=== PATIENT | male | born 1945 | race Caucasian/White ===

== ENCOUNTER 2023-01-09 15:50 | Emergency (ER) | payer BC, MEDICARE, OTHER ==
[~2023-01-09] VITALS: Ht 170.2 cm; Wt 75.0 kg
[2023-01-09 17:03] LABS: ALANINE AMINOTRANSFERASE 48 U/L (12-78); ALBUMIN 4.4 G/DL (3.4-5.0); ALBUMIN/GLOBULIN RATIO 1.3 (1.1-1.5); ALKALINE PHOSPHATASE 111 IU/L (46-116); ANION GAP 13 (8-16); ASPARTATE AMINO TRANSFERASE 25 U/L (10-37); BILIRUBIN,TOTAL 0.5 MG/DL (0.1-1.0); BLOOD UREA NITROGEN 27 MG/DL (7-18); BUN/CREATININE RATIO 18.6 (10.0-20.0); CALCIUM 9.3 MG/DL (8.5-10.1); CHLORIDE 98 MMOL/L (99-107); CREATININE 1.45 MG/DL (0.60-1.10); GLUCOSE 224 MG/DL (70-104); POTASSIUM 3.8 MMOL/L (3.5-5.1); SODIUM 138 MMOL/L (135-145); TOTAL CARBON DIOXIDE 26.6 MMOL/L (24-32); TOTAL PROTEIN 7.9 G/DL (6.4-8.2); eGFR 47 ML/MIN
[2023-01-09] MEDS ORDERED: normal saline 1000ML IV soln IVB ONE (17:05)
[2023-01-09 17:48] LABS: MEAN PLATELET VOLUME 8.3 FL (7.4-10.4)
[2023-01-09 17:50] LABS: BASOPHILS # (AUTO) 0.1 X10'3 (0-0.2); BASOPHILS % (AUTO) 0.5 % (0-1); EOSINOPHILS # (AUTO) 0.2 X10'3 (0-0.9); EOSINOPHILS % (AUTO) 1.5 % (0-6); LYMPHOCYTES # (AUTO) 2.7 X10'3 (1.1-4.8); LYMPHOCYTES % (AUTO) 24.4 % (21-51); MONOCYTES % (AUTO) 9.1 % (2-12); NEUTROPHILS % (AUTO) 64.5 % (42-75); PLATELET COUNT 137 X10'3 (140-440); WHITE BLOOD COUNT 10.9 X10'3 (4.5-11.0)
[2023-01-09 18:04] LABS: MAGNESIUM 1.7 MG/DL (1.5-2.4)
[2023-01-09 19:07] LABS: COLOR,URINE YELLOW (Yellow); GLUCOSE, URINE 100 mg/dl (Neg); KETONES,URINE NEGATIVE (Neg); LEUKOCYTE ESTERASE ,URINE NEGATIVE (Neg); NITRITES, URINE NEGATIVE (Neg); OCCULT BLOOD,URINE SMALL (Neg); PH,URINE 5.5 (4.8-8.0); PROTEIN,URINE 100 mg/dl (Neg); UROBILINOGEN,URINE 0.2 E.U/dL (0.2-1.0)
[2023-01-09 19:16] LABS: HEMATOCRIT 43.3 % (42.0-52.0); HEMOGLOBIN 15.5 g/dl (14.0-17.9); MEAN CORPUSCULAR HEMOGLOBIN 32.5 PG (27.0-31.0); MEAN CORPUSCULAR HGB CONC 35.9 g/dL (33.0-36.5); MEAN CORPUSCULAR VOLUME 90.5 FL (78-98); RED BLOOD COUNT 4.78 X10'6 (4.70-6.10); RED CELL DISTRIBUTION WIDTH 13.4 % (11.5-14.5)
[2023-01-09 19:28] LABS: CLARITY,URINE SLIGHTLY CLOUDY (Clear); UA COLLECTION TYPE CLN CATCH MIDSTREAM
[2023-01-09 19:29] LABS: BACTERIA,URINE FEW /HPF (Neg); MUCUS STRANDS FEW /LPF (Neg); RBC,URINE 0-2 /HPF (0-2); SQUAMOUS EPITHELIAL CELL,UR FEW /LPF (FEW); URIC ACID CRYSTALS FEW /HPF (NEGATIVE); WBC,URINE 0-4 /HPF (0-4)
[2023-01-09 19:36] LABS: PLATELET ESTIMATE DECREASED; TOTAL CELLS COUNTED 100
[2023-01-09 19:39] LABS: ELLIPTOCYTES FEW; SPHEROCYTES FEW
[2023-01-09] MEDS ORDERED: nitroGLYCERIN 0.4mg/hour patch TD ONE (19:55)
[2023-01-09] MEDS ORDERED: HYDROchlorothiazide 25mg tablet PO ONE (19:55)
[2023-01-09] MEDS ORDERED: losartan 50mg tablet PO ONE (20:00)
[2023-01-09 21:42] VITALS: BP 159/89
[2023-01-09] MEDS ORDERED: MECL-226 PO (22:09)
== END 2023-01-09 22:52 | disposition home or self-care (01) ==
LOC: ER 15:51
DX: R42 Dizziness and giddiness (principal); R53.83 Other fatigue; I10 Essential (primary) hypertension; E11.9 Type 2 diabetes mellitus without complications; Z88.1 Allergy status to other antibiotic agents; Z79.899 Other long term (current) drug therapy
CPT/HCPCS: 36415; 70450; 71045; 80053; 81001; 82948; 83605; 83690; 83735; 83880; 84484; 85007; 85025; 87040; 93005; 99285; J7030

== ENCOUNTER 2024-04-14 08:16 | Inpatient (IN) | payer BC ==
[~2024-04-14] VITALS: Ht 170.2 cm; Wt 75.0 kg
[~2024-04-14 08:16] MED LIST: MECL-226 PO
[2024-04-14] MEDS ORDERED: AMLO2.5T5 PO (08:31)
[2024-04-14] MEDS ORDERED: SIMV-45 PO (08:31)
[2024-04-14] MEDS ORDERED: METO25TA6 PO (08:31)
[2024-04-14] MEDS ORDERED: LEVO112T5 PO (08:31)
[2024-04-14] MEDS ORDERED: HYDR25TA90 (08:31)
[2024-04-14] MEDS: morphine 4 MG/ML inj SYRINge IV ONE ×2 (08:58→12:58)
[2024-04-14 10:57] LABS: ALANINE AMINOTRANSFERASE 26 U/L (12-78); ALBUMIN 3.7 G/DL (3.4-5.0); ALBUMIN/GLOBULIN RATIO 1.1 (1.1-1.5); ALKALINE PHOSPHATASE 109 IU/L (46-116); ANION GAP 10 (8-16); ASPARTATE AMINO TRANSFERASE 23 U/L (10-37); BILIRUBIN,TOTAL 1.1 MG/DL (0.1-1.0); BLOOD UREA NITROGEN 20 MG/DL (7-18); BUN/CREATININE RATIO 21.5 (10.0-20.0); CALCIUM 8.7 MG/DL (8.5-10.1); CHLORIDE 99 MMOL/L (99-107); CREATININE 0.93 MG/DL (0.60-1.10); GLUCOSE 148 MG/DL (70-104); SODIUM 137 MMOL/L (135-145); TOTAL CARBON DIOXIDE 28.2 MMOL/L (24-32); TOTAL PROTEIN 7.1 G/DL (6.4-8.2); eCRCL 60 ML/MIN; eGFR 78 ML/MIN
[2024-04-14 11:28] LABS: BASOPHILS # (AUTO) 0.1 X10'3 (0-0.2); BASOPHILS % (AUTO) 0.8 % (0-1); EOSINOPHILS % (AUTO) 0.2 % (0-6); HEMATOCRIT 38.7 % (42.0-52.0); LYMPHOCYTES # (AUTO) 0.9 X10'3 (1.1-4.8); LYMPHOCYTES % (AUTO) 9.1 % (21-51); MEAN CORPUSCULAR HEMOGLOBIN 33.7 PG (27.0-31.0); MEAN CORPUSCULAR VOLUME 93.4 FL (78-98); MEAN PLATELET VOLUME 7.9 FL (7.4-10.4); MONOCYTES # (AUTO) 0.7 X10'3 (0-0.9); MONOCYTES % (AUTO) 7.7 % (2-12); NEUTROPHILS # (AUTO) 7.9 X10'3 (1.8-7.7); NEUTROPHILS % (AUTO) 82.2 % (42-75); PLATELET COUNT 134 X10'3 (140-440); RED BLOOD COUNT 4.15 X10'6 (4.70-6.10); RED CELL DISTRIBUTION WIDTH 13.5 % (11.5-14.5); WHITE BLOOD COUNT 9.6 X10'3 (4.5-11.0)
[2024-04-14 11:30] LABS: MEAN CORPUSCULAR HGB CONC 36.1 g/dL (33.0-36.5)
[2024-04-14] MEDS: dexamethasone sod phosphate 10mg/ml inj IV STA (12:40)
[2024-04-14] MEDS: amLODIPine 2.5mg tablet PO ONE (12:46)
[2024-04-14] MEDS: hyDRALAzine 10mg tablet PO STA (12:46)
[2024-04-14] MEDS ORDERED: potassium Cl 40MEQ/1/2NS 520ml 520 ML IV PRN (13:20)
[2024-04-14] MEDS ORDERED: potassium Cl 20 mEq SR tablet PO PRN ×2 (13:20)
[2024-04-14] MEDS ORDERED: acetaminophen 325mg tablet PO PRN (13:20)
[2024-04-14] MEDS ORDERED: magnesium sulf-water 2g/50mL 50 ML IV PRN (13:20)
[2024-04-14] MEDS ORDERED: magnesium Cl slow-release 64mg tablet PO PRN (13:20)
[2024-04-14] MEDS ORDERED: morphine 2 MG/ML inj. syringe IV PRN (13:20)
[2024-04-14] MEDS ORDERED: magnesium sulf-water 4G/100mL 100 ML IV PRN (13:20)
[2024-04-14] MEDS: normal saline 1000ml 1,000 ML IV SCH (13:38)
[2024-04-14] MEDS ORDERED: SERT-432 PO (13:44)
[2024-04-14] MEDS ORDERED: LOSA100T58 PO (13:44)
[2024-04-14] MEDS ORDERED: FLO0.4C PO (13:44)
[2024-04-14] MEDS ORDERED: HYDR25TA90 PO (13:49)
[2024-04-14] MEDS ORDERED: INSU100V9 SQ (13:50)
[2024-04-14 15:08] LABS: HEMOGLOBIN A1C 5.7 % (4.5-6.2)
[2024-04-14 15:15] LABS: CHOL/HDL RATIO 4.5 (0.00-4.99); CHOLESTEROL 139 MG/DL (0-200); HDL CHOLESTEROL 31 MG/DL (35-60); LDL CHOLESTEROL 86 MG/DL (50-100); THYROID STIMULATING HORMONE 1.54 ulU/ml (0.34-4.50); TRIGLYCERIDES 176 MG/DL (20-135)
[2024-04-14] MEDS ORDERED: glucagon, human recombinant 1mg kit SUBCUT PRN (16:35)
[2024-04-14] MEDS ORDERED: DEXTROSE 15 GM of carb/4 tabs (each vial/BOTTLE has 4 tablets) PO PRN ×2 (16:35)
[2024-04-14] MEDS ORDERED: dextrose 50%-water 50ml dispensing syringe IV PRN ×2 (16:35)
[2024-04-14] MEDS: INSULIN LISPRO 100 UNIT/ML INSULN.PEN MULTI-DOSE SQ SCH (17:00)
[2024-04-14] MEDS: sertraline 25mg tablet PO SCH (17:45)
[2024-04-14] MEDS: tamsulosin 0.4mg capsule PO SCH (17:46)
[2024-04-14] MEDS: ondansetron/PF 4mg/2ml inj IV PRN (18:46)
[2024-04-14] MEDS: morphine 2 MG/ML inj. syringe IV PRN (18:50)
[2024-04-14 18:55] VITALS: BP 179/82; PULSE 89; TEMP 97.4; O2SAT 97
[2024-04-14 19:00] VITALS: RESP 18; O2SAT 96
[2024-04-14 19:20] VITALS: RESP 18; O2SAT 96
[2024-04-14] MEDS: K and/or MAG REPLACEMENT MC SCH (19:20)
[2024-04-14] MEDS: docusate sod 100mg capsule PO SCH (19:24)
[2024-04-14] MEDS: HYDROcodone/acetaminophen 5mg/325mg tablet PO PRN (19:25)
[2024-04-14] MEDS: metoprolol tartrate 25mg tablet PO SCH (19:27)
[2024-04-14] MEDS: enoxaparin 40mg/0.4ml syringe SQ SCH (19:28)
[2024-04-14] MEDS: simvastatin 20mg tablet PO SCH (21:25)
[2024-04-14] MEDS: insulin glargine (Lantus) pen - multi-dose SQ SCH (21:50)
[2024-04-14 22:00] VITALS: BP 131/78; PULSE 79; RESP 16; TEMP 97.4; O2SAT 98
[2024-04-14] MEDS: temazepam 15mg capsule PO ONE (23:20)
[2024-04-15] MEDS ORDERED: OMEP40CA21 PO (01:53)
[2024-04-15 06:00] VITALS: BP 143/90; PULSE 68; RESP 16; TEMP 97.5; O2SAT 99
[2024-04-15 06:04] LABS: ALANINE AMINOTRANSFERASE 30 U/L (12-78); ALBUMIN 3.5 G/DL (3.4-5.0); ALKALINE PHOSPHATASE 102 IU/L (46-116); ANION GAP 7 (8-16); ASPARTATE AMINO TRANSFERASE 23 U/L (10-37); BILIRUBIN,TOTAL 0.8 MG/DL (0.1-1.0); BLOOD UREA NITROGEN 27 MG/DL (7-18); BUN/CREATININE RATIO 25.5 (10.0-20.0); CALCIUM 8.6 MG/DL (8.5-10.1); CHLORIDE 99 MMOL/L (99-107); CREATININE 1.06 MG/DL (0.60-1.10); GLUCOSE 123 MG/DL (70-104); MAGNESIUM 2.1 MG/DL (1.5-2.4); SODIUM 134 MMOL/L (135-145); TOTAL CARBON DIOXIDE 27.9 MMOL/L (24-32); eCRCL 53 ML/MIN; eGFR 67 ML/MIN
[2024-04-15 06:20] LABS: BASOPHILS % (AUTO) 0.2 % (0-1); EOSINOPHILS % (AUTO) 0.1 % (0-6); HEMATOCRIT 39.1 % (42.0-52.0); HEMOGLOBIN 13.9 g/dl (14.0-17.9); LYMPHOCYTES # (AUTO) 1.5 X10'3 (1.1-4.8); LYMPHOCYTES % (AUTO) 10.2 % (21-51); MEAN CORPUSCULAR HEMOGLOBIN 33.8 PG (27.0-31.0); MEAN CORPUSCULAR HGB CONC 35.6 g/dL (33.0-36.5); MEAN CORPUSCULAR VOLUME 94.7 FL (78-98); MONOCYTES # (AUTO) 1.2 X10'3 (0-0.9); MONOCYTES % (AUTO) 8.5 % (2-12); NEUTROPHILS # (AUTO) 11.6 X10'3 (1.8-7.7); PLATELET COUNT 154 X10'3 (140-440); RED BLOOD COUNT 4.12 X10'6 (4.70-6.10); RED CELL DISTRIBUTION WIDTH 13.4 % (11.5-14.5); WHITE BLOOD COUNT 14.2 X10'3 (4.5-11.0)
[2024-04-15 10:00] VITALS: BP 109/63; PULSE 71; RESP 20; TEMP 97.1; O2SAT 98
[2024-04-15] MEDS: levoTHYROXINE 112mcg tablet PO SCH (11:13)
[2024-04-15] MEDS: losartan 50mg tablet PO SCH (11:13)
[2024-04-15] MEDS: metoprolol succinate 25mg (24-HOUR) SR. Tablet PO SCH (11:38)
[2024-04-15] MEDS ORDERED: GADOTERATE MEGLUMINE 7.5 MMOL/15 ML VIAL IV ONE (13:19)
[2024-04-15 18:00] VITALS: BP 164/92; PULSE 65; RESP 20; TEMP 97; O2SAT 99
[2024-04-15 20:00] VITALS: RESP 18; O2SAT 99
[2024-04-15] MEDS: magnesium hydroxide 30ml (MOM) UD suspension PO PRN (21:30)
[2024-04-15] MEDS: insulin glargine (Lantus) pen - multi-dose SQ SCH (21:41)
[2024-04-15 22:00] VITALS: BP 116/67; PULSE 66; RESP 14; TEMP 99.2; O2SAT 98
[2024-04-15] MEDS: pneumococcal 23-VAL P-sac vacc 25 mcg/0.5ml vial IMVAC ONE (23:22)
[2024-04-16 05:51] LABS: BASOPHILS # (AUTO) 0.1 X10'3 (0-0.2); BASOPHILS % (AUTO) 0.8 % (0-1); EOSINOPHILS # (AUTO) 0.1 X10'3 (0-0.9); EOSINOPHILS % (AUTO) 0.7 % (0-6); HEMATOCRIT 35.1 % (42.0-52.0); HEMOGLOBIN 12.7 g/dl (14.0-17.9); LYMPHOCYTES # (AUTO) 1.7 X10'3 (1.1-4.8); LYMPHOCYTES % (AUTO) 17.4 % (21-51); MEAN CORPUSCULAR HGB CONC 36.1 g/dL (33.0-36.5); MEAN CORPUSCULAR VOLUME 94.2 FL (78-98); MONOCYTES # (AUTO) 0.9 X10'3 (0-0.9); NEUTROPHILS # (AUTO) 7.2 X10'3 (1.8-7.7); NEUTROPHILS % (AUTO) 72.1 % (42-75); PLATELET COUNT 129 X10'3 (140-440); RED BLOOD COUNT 3.72 X10'6 (4.70-6.10); RED CELL DISTRIBUTION WIDTH 13.7 % (11.5-14.5)
[2024-04-16 06:00] VITALS: BP 139/81; PULSE 66; RESP 16; TEMP 97.5; O2SAT 98
[2024-04-16 06:01] LABS: ALANINE AMINOTRANSFERASE 27 U/L (12-78); ALBUMIN 3.1 G/DL (3.4-5.0); ALBUMIN/GLOBULIN RATIO 1.1 (1.1-1.5); ALKALINE PHOSPHATASE 85 IU/L (46-116); ANION GAP 6 (8-16); ASPARTATE AMINO TRANSFERASE 26 U/L (10-37); BILIRUBIN,TOTAL 0.8 MG/DL (0.1-1.0); BLOOD UREA NITROGEN 28 MG/DL (7-18); BUN/CREATININE RATIO 29.2 (10.0-20.0); CALCIUM 8.3 MG/DL (8.5-10.1); CHLORIDE 103 MMOL/L (99-107); CREATININE 0.96 MG/DL (0.60-1.10); GLUCOSE 97 MG/DL (70-104); MAGNESIUM 2.2 MG/DL (1.5-2.4); SODIUM 137 MMOL/L (135-145); TOTAL CARBON DIOXIDE 28.4 MMOL/L (24-32); eCRCL 58 ML/MIN; eGFR 76 ML/MIN
[2024-04-16] MEDS: metFORMIN 500mg tablet PO SCH (07:46)
[2024-04-16] MEDS: metoprolol succinate 25mg (24-HOUR) SR. Tablet PO SCH (07:46)
[2024-04-16 08:00] VITALS: RESP 16; O2SAT 98
[2024-04-16 10:00] VITALS: BP 126/67; PULSE 61; RESP 18; TEMP 97.4; O2SAT 99
[2024-04-16 16:28] LABS: OCCULT BLOOD STOOL NEGATIVE (Neg)
[2024-04-16 18:00] VITALS: BP 157/85; PULSE 77; RESP 18; TEMP 97.7; O2SAT 95
[2024-04-16 20:00] VITALS: RESP 18; O2SAT 95
[2024-04-16 22:00] VITALS: BP 154/73; PULSE 67; RESP 18; TEMP 97.7; O2SAT 97
[2024-04-17 05:03] LABS: BASOPHILS % (AUTO) 0.5 % (0-1); EOSINOPHILS # (AUTO) 0.1 X10'3 (0-0.9); EOSINOPHILS % (AUTO) 1.3 % (0-6); HEMATOCRIT 34.9 % (42.0-52.0); HEMOGLOBIN 12.4 g/dl (14.0-17.9); LYMPHOCYTES # (AUTO) 1.4 X10'3 (1.1-4.8); LYMPHOCYTES % (AUTO) 15.2 % (21-51); MEAN CORPUSCULAR HEMOGLOBIN 33.9 PG (27.0-31.0); MEAN CORPUSCULAR HGB CONC 35.6 g/dL (33.0-36.5); MEAN PLATELET VOLUME 7.6 FL (7.4-10.4); MONOCYTES # (AUTO) 0.9 X10'3 (0-0.9); MONOCYTES % (AUTO) 9.2 % (2-12); NEUTROPHILS # (AUTO) 6.9 X10'3 (1.8-7.7); NEUTROPHILS % (AUTO) 73.8 % (42-75); PLATELET COUNT 123 X10'3 (140-440); RED BLOOD COUNT 3.67 X10'6 (4.70-6.10); WHITE BLOOD COUNT 9.4 X10'3 (4.5-11.0)
[2024-04-17 05:25] LABS: ALANINE AMINOTRANSFERASE 28 U/L (12-78); ALBUMIN 3.1 G/DL (3.4-5.0); ALBUMIN/GLOBULIN RATIO 1.1 (1.1-1.5); ALKALINE PHOSPHATASE 90 IU/L (46-116); ANION GAP 7 (8-16); ASPARTATE AMINO TRANSFERASE 27 U/L (10-37); BILIRUBIN,TOTAL 0.6 MG/DL (0.1-1.0); BLOOD UREA NITROGEN 22 MG/DL (7-18); BUN/CREATININE RATIO 27.5 (10.0-20.0); CALCIUM 8.2 MG/DL (8.5-10.1); CHLORIDE 105 MMOL/L (99-107); GLUCOSE 108 MG/DL (70-104); MAGNESIUM 2.1 MG/DL (1.5-2.4); POTASSIUM 3.9 MMOL/L (3.5-5.1); SODIUM 137 MMOL/L (135-145); TOTAL CARBON DIOXIDE 25.5 MMOL/L (24-32); eCRCL 70 ML/MIN; eGFR > 90 ML/MIN
[2024-04-17 05:27] LABS: % IRON SATURATION 43 % (11-46); IRON 87 UG/DL (53-167); TOTAL IRON BINDING CAPACITY 203 UG/DL (259-388)
[2024-04-17 06:00] VITALS: BP 163/89; PULSE 61; RESP 18; TEMP 97.7; O2SAT 97
[2024-04-17 08:00] VITALS: RESP 16; O2SAT 97
[2024-04-17 10:00] VITALS: BP 175/83; PULSE 78; RESP 19; TEMP 97.7; O2SAT 98
[2024-04-17] MEDS: hydrALAZINE 20mg/ml inj. IV PRN (11:36)
[2024-04-17 18:00] VITALS: BP 198/102; PULSE 86; RESP 20; TEMP 97.9; O2SAT 98
[2024-04-17 20:00] VITALS: BP 159/86; RESP 20; O2SAT 99
[2024-04-17 22:00] VITALS: BP 95/45; PULSE 80; RESP 20; TEMP 97.8; O2SAT 98
[2024-04-17] MEDS: acetaminophen 325mg tablet PO PRN (22:48)
[2024-04-18 05:12] LABS: BASOPHILS % (AUTO) 0.4 % (0-1); EOSINOPHILS % (AUTO) 0.3 % (0-6); HEMATOCRIT 35.5 % (42.0-52.0); HEMOGLOBIN 12.7 g/dl (14.0-17.9); LYMPHOCYTES # (AUTO) 1.2 X10'3 (1.1-4.8); LYMPHOCYTES % (AUTO) 10.7 % (21-51); MEAN CORPUSCULAR HGB CONC 35.9 g/dL (33.0-36.5); MEAN CORPUSCULAR VOLUME 94.8 FL (78-98); MONOCYTES # (AUTO) 0.6 X10'3 (0-0.9); MONOCYTES % (AUTO) 5.5 % (2-12); NEUTROPHILS # (AUTO) 9.2 X10'3 (1.8-7.7); NEUTROPHILS % (AUTO) 83.1 % (42-75); PLATELET COUNT 142 X10'3 (140-440); RED BLOOD COUNT 3.74 X10'6 (4.70-6.10); RED CELL DISTRIBUTION WIDTH 13.6 % (11.5-14.5); WHITE BLOOD COUNT 11.1 X10'3 (4.5-11.0)
[2024-04-18 05:20] LABS: ALANINE AMINOTRANSFERASE 28 U/L (12-78); ALBUMIN 3.2 G/DL (3.4-5.0); ALKALINE PHOSPHATASE 95 IU/L (46-116); ANION GAP 6 (8-16); ASPARTATE AMINO TRANSFERASE 24 U/L (10-37); BILIRUBIN,TOTAL 0.9 MG/DL (0.1-1.0); BLOOD UREA NITROGEN 19 MG/DL (7-18); BUN/CREATININE RATIO 22.4 (10.0-20.0); CALCIUM 8.2 MG/DL (8.5-10.1); CHLORIDE 101 MMOL/L (99-107); CREATININE 0.85 MG/DL (0.60-1.10); GLUCOSE 119 MG/DL (70-104); MAGNESIUM 2.1 MG/DL (1.5-2.4); POTASSIUM 3.9 MMOL/L (3.5-5.1); SODIUM 133 MMOL/L (135-145); TOTAL CARBON DIOXIDE 25.8 MMOL/L (24-32); TOTAL PROTEIN 6.3 G/DL (6.4-8.2); eCRCL 66 ML/MIN; eGFR 87 ML/MIN
[2024-04-18 06:00] VITALS: BP 152/86; PULSE 80; RESP 14; TEMP 98.3; O2SAT 98
[2024-04-18 08:30] VITALS: RESP 18; O2SAT 97
[2024-04-18 11:50] VITALS: BP 137/73; PULSE 76; RESP 17; TEMP 97; O2SAT 100
[2024-04-18 18:00] VITALS: BP 124/63; PULSE 77; RESP 16; TEMP 97.7; O2SAT 98
[2024-04-18 20:00] VITALS: RESP 16; O2SAT 98
[2024-04-18 22:00] VITALS: BP 127/67; PULSE 77; RESP 18; TEMP 97.5; O2SAT 99
[2024-04-19] VITALS (7 sets, daily range): BP systolic 128–179; BP diastolic 74–96; PULSE 62–82; RESP 12–16; TEMP 97.2–98.5; O2SAT 98–99
[2024-04-19 04:50] LABS: BASOPHILS % (AUTO) 0.6 % (0-1); EOSINOPHILS # (AUTO) 0.2 X10'3 (0-0.9); EOSINOPHILS % (AUTO) 2.1 % (0-6); HEMATOCRIT 34.7 % (42.0-52.0); HEMOGLOBIN 12.4 g/dl (14.0-17.9); LYMPHOCYTES # (AUTO) 1.4 X10'3 (1.1-4.8); MEAN CORPUSCULAR HEMOGLOBIN 34.4 PG (27.0-31.0); MEAN CORPUSCULAR HGB CONC 35.8 g/dL (33.0-36.5); MEAN PLATELET VOLUME 7.9 FL (7.4-10.4); MONOCYTES # (AUTO) 0.7 X10'3 (0-0.9); MONOCYTES % (AUTO) 8.3 % (2-12); NEUTROPHILS # (AUTO) 5.6 X10'3 (1.8-7.7); PLATELET COUNT 134 X10'3 (140-440); RED BLOOD COUNT 3.61 X10'6 (4.70-6.10); RED CELL DISTRIBUTION WIDTH 13.8 % (11.5-14.5); WHITE BLOOD COUNT 7.8 X10'3 (4.5-11.0)
[2024-04-19 05:06] LABS: ALANINE AMINOTRANSFERASE 31 U/L (12-78); ALKALINE PHOSPHATASE 85 IU/L (46-116); ANION GAP 7 (8-16); ASPARTATE AMINO TRANSFERASE 28 U/L (10-37); BILIRUBIN,TOTAL 0.9 MG/DL (0.1-1.0); BLOOD UREA NITROGEN 19 MG/DL (7-18); BUN/CREATININE RATIO 22.1 (10.0-20.0); CALCIUM 8.1 MG/DL (8.5-10.1); CHLORIDE 103 MMOL/L (99-107); CREATININE 0.86 MG/DL (0.60-1.10); GLUCOSE 115 MG/DL (70-104); POTASSIUM 3.8 MMOL/L (3.5-5.1); SODIUM 135 MMOL/L (135-145); TOTAL CARBON DIOXIDE 25.1 MMOL/L (24-32); TOTAL PROTEIN 5.9 G/DL (6.4-8.2); eCRCL 65 ML/MIN; eGFR 86 ML/MIN
[2024-04-19] MEDS: metoprolol succinate 25mg (24-HOUR) SR. Tablet PO SCH (07:59)
[2024-04-19] MEDS: lactose-reduced food (Ensure Enlive) - 237ml bottle PO SCH (18:00)
[2024-04-20] VITALS (7 sets, daily range): BP systolic 102–142; BP diastolic 65–81; PULSE 67–82; RESP 16–18; TEMP 97.3–98.9; O2SAT 95–99
[2024-04-20] MEDS: OMEGA-3/DHA/EPA/FISH OIL 1 EACH CAPSULE.DR PO SCH (09:05)
[2024-04-20] MEDS: amLODIPine 2.5mg tablet PO SCH (19:26)
[2024-04-21] VITALS (10 sets, daily range): BP systolic 64–156; BP diastolic 41–89; PULSE 65–77; RESP 14–22; TEMP 97.6–98.1; O2SAT 98–99
[2024-04-21] MEDS: losartan 50mg tablet PO SCH (08:00)
[2024-04-21] MEDS ORDERED: metoprolol succinate 25mg (24-HOUR) SR. Tablet PO SCH (08:18)
[2024-04-21] MEDS ORDERED: normal saline 500ml IV soln 500 ML IV ONE (10:00)
[2024-04-21] MEDS: normal saline 1000ml 1,000 ML IV ONE (10:40)
[2024-04-21 13:26] LABS: BASOPHILS % (AUTO) 0.6 % (0-1); EOSINOPHILS # (AUTO) 0.1 X10'3 (0-0.9); HEMATOCRIT 34.4 % (42.0-52.0); HEMOGLOBIN 12.2 g/dl (14.0-17.9); LYMPHOCYTES # (AUTO) 0.9 X10'3 (1.1-4.8); LYMPHOCYTES % (AUTO) 11.7 % (21-51); MEAN CORPUSCULAR HEMOGLOBIN 33.9 PG (27.0-31.0); MEAN CORPUSCULAR HGB CONC 35.5 g/dL (33.0-36.5); MEAN CORPUSCULAR VOLUME 95.4 FL (78-98); MEAN PLATELET VOLUME 7.7 FL (7.4-10.4); MONOCYTES # (AUTO) 0.7 X10'3 (0-0.9); NEUTROPHILS # (AUTO) 5.7 X10'3 (1.8-7.7); NEUTROPHILS % (AUTO) 77.7 % (42-75); PLATELET COUNT 126 X10'3 (140-440); RED CELL DISTRIBUTION WIDTH 13.9 % (11.5-14.5); WHITE BLOOD COUNT 7.3 X10'3 (4.5-11.0)
[2024-04-21 13:38] LABS: ALANINE AMINOTRANSFERASE 52 U/L (12-78); ALBUMIN 3.1 G/DL (3.4-5.0); ALKALINE PHOSPHATASE 81 IU/L (46-116); ANION GAP 6 (8-16); ASPARTATE AMINO TRANSFERASE 32 U/L (10-37); BILIRUBIN,TOTAL 0.6 MG/DL (0.1-1.0); BLOOD UREA NITROGEN 24 MG/DL (7-18); BUN/CREATININE RATIO 23.1 (10.0-20.0); CALCIUM 8.1 MG/DL (8.5-10.1); CHLORIDE 101 MMOL/L (99-107); CREATININE 1.04 MG/DL (0.60-1.10); GLUCOSE 189 MG/DL (70-104); POTASSIUM 4.2 MMOL/L (3.5-5.1); SODIUM 134 MMOL/L (135-145); TOTAL CARBON DIOXIDE 27.4 MMOL/L (24-32); TOTAL PROTEIN 6.2 G/DL (6.4-8.2); eCRCL 54 ML/MIN; eGFR 69 ML/MIN
[2024-04-21] MEDS: mag hydrox/Alum hydrox/simeth 30ml oral suspension PO PRN (22:35)
[2024-04-22 06:11] LABS: BASOPHILS % (AUTO) 0.4 % (0-1); EOSINOPHILS # (AUTO) 0.2 X10'3 (0-0.9); EOSINOPHILS % (AUTO) 1.6 % (0-6); HEMOGLOBIN 12.1 g/dl (14.0-17.9); LYMPHOCYTES # (AUTO) 1.8 X10'3 (1.1-4.8); LYMPHOCYTES % (AUTO) 16.3 % (21-51); MEAN CORPUSCULAR HEMOGLOBIN 33.9 PG (27.0-31.0); MEAN CORPUSCULAR HGB CONC 35.5 g/dL (33.0-36.5); MEAN CORPUSCULAR VOLUME 95.6 FL (78-98); MONOCYTES # (AUTO) 1.2 X10'3 (0-0.9); MONOCYTES % (AUTO) 10.6 % (2-12); NEUTROPHILS # (AUTO) 7.8 X10'3 (1.8-7.7); NEUTROPHILS % (AUTO) 71.1 % (42-75); PLATELET COUNT 127 X10'3 (140-440); RED BLOOD COUNT 3.56 X10'6 (4.70-6.10); RED CELL DISTRIBUTION WIDTH 13.8 % (11.5-14.5); WHITE BLOOD COUNT 10.9 X10'3 (4.5-11.0)
[2024-04-22 06:38] LABS: ALANINE AMINOTRANSFERASE 49 U/L (12-78); ALBUMIN 3.1 G/DL (3.4-5.0); ALKALINE PHOSPHATASE 83 IU/L (46-116); ANION GAP 6 (8-16); ASPARTATE AMINO TRANSFERASE 25 U/L (10-37); BILIRUBIN,TOTAL 0.5 MG/DL (0.1-1.0); BLOOD UREA NITROGEN 28 MG/DL (7-18); BUN/CREATININE RATIO 29.8 (10.0-20.0); CALCIUM 8.4 MG/DL (8.5-10.1); CHLORIDE 101 MMOL/L (99-107); CREATININE 0.94 MG/DL (0.60-1.10); GLUCOSE 122 MG/DL (70-104); POTASSIUM 4.2 MMOL/L (3.5-5.1); SODIUM 133 MMOL/L (135-145); TOTAL CARBON DIOXIDE 25.6 MMOL/L (24-32); TOTAL PROTEIN 6.2 G/DL (6.4-8.2); eCRCL 60 ML/MIN; eGFR 77 ML/MIN
[2024-04-22 08:00] VITALS: RESP 16; O2SAT 97
[2024-04-22] MEDS: metoprolol succinate 25mg (24-HOUR) SR. Tablet PO SCH (08:03)
[2024-04-22] MEDS: losartan 50mg tablet PO SCH (08:03)
[2024-04-22 09:00] VITALS: BP 111/70; PULSE 74
[2024-04-22 10:00] VITALS: BP 111/70; PULSE 77; RESP 17; TEMP 97.9; O2SAT 98
[2024-04-22] MEDS: fludrocortisone acetate 0.1mg tablet PO SCH (16:26)
[2024-04-22] MEDS: meclizine 12.5mg tablet PO SCH (16:26)
[2024-04-22 18:00] VITALS: BP 141/79; PULSE 86; RESP 20; TEMP 98.6; O2SAT 98
[2024-04-22 20:00] VITALS: RESP 14; O2SAT 97
[2024-04-22 22:00] VITALS: BP 141/77; PULSE 82; RESP 14; TEMP 97.7; O2SAT 97
[2024-04-23] VITALS (7 sets, daily range): BP systolic 80–158; BP diastolic 40–85; PULSE 72–93; RESP 13–17; TEMP 96.7–98.5; O2SAT 97–99
[2024-04-23 09:59] LABS: BASOPHILS # (AUTO) 0.1 X10'3 (0-0.2); BASOPHILS % (AUTO) 0.8 % (0-1); EOSINOPHILS # (AUTO) 0.2 X10'3 (0-0.9); HEMATOCRIT 36.5 % (42.0-52.0); HEMOGLOBIN 12.7 g/dl (14.0-17.9); LYMPHOCYTES # (AUTO) 1.6 X10'3 (1.1-4.8); LYMPHOCYTES % (AUTO) 17.8 % (21-51); MEAN CORPUSCULAR HEMOGLOBIN 33.5 PG (27.0-31.0); MEAN CORPUSCULAR HGB CONC 34.9 g/dL (33.0-36.5); MEAN CORPUSCULAR VOLUME 96.2 FL (78-98); MEAN PLATELET VOLUME 7.9 FL (7.4-10.4); MONOCYTES # (AUTO) 0.8 X10'3 (0-0.9); MONOCYTES % (AUTO) 8.6 % (2-12); NEUTROPHILS # (AUTO) 6.5 X10'3 (1.8-7.7); NEUTROPHILS % (AUTO) 70.8 % (42-75); PLATELET COUNT 142 X10'3 (140-440); RED CELL DISTRIBUTION WIDTH 13.8 % (11.5-14.5); WHITE BLOOD COUNT 9.1 X10'3 (4.5-11.0)
[2024-04-23 10:11] LABS: ALANINE AMINOTRANSFERASE 56 U/L (12-78); ALBUMIN 3.4 G/DL (3.4-5.0); ALBUMIN/GLOBULIN RATIO 1.1 (1.1-1.5); ALKALINE PHOSPHATASE 90 IU/L (46-116); ANION GAP 8 (8-16); ASPARTATE AMINO TRANSFERASE 29 U/L (10-37); BILIRUBIN,TOTAL 0.8 MG/DL (0.1-1.0); BLOOD UREA NITROGEN 29 MG/DL (7-18); CALCIUM 8.8 MG/DL (8.5-10.1); CHLORIDE 98 MMOL/L (99-107); CREATININE 1.21 MG/DL (0.60-1.10); GLUCOSE 215 MG/DL (70-104); POTASSIUM 3.8 MMOL/L (3.5-5.1); SODIUM 134 MMOL/L (135-145); TOTAL CARBON DIOXIDE 27.9 MMOL/L (24-32); TOTAL PROTEIN 6.6 G/DL (6.4-8.2); eCRCL 46 ML/MIN; eGFR 58 ML/MIN
[2024-04-23] MEDS ORDERED: FLUD0.1T PO (12:38)
[2024-04-23] MEDS ORDERED: METO-395 PO (12:38)
[2024-04-23] MEDS ORDERED: MECL-231 PO (12:39)
[2024-04-24 06:00] VITALS: BP 109/67; PULSE 80; RESP 13; TEMP 97.1; O2SAT 100
[2024-04-24 08:00] VITALS: RESP 13; O2SAT 100
[2024-04-24] MEDS ORDERED: metoprolol succinate 25mg (24-HOUR) SR. Tablet PO SCH (08:00)
[2024-04-24] MEDS: midodrine tablet 2.5 MG TABLET PO SCH (09:03)
[2024-04-24] MEDS: fludrocortisone acetate 0.1mg tablet PO SCH (09:07)
[2024-04-24 10:00] VITALS: BP 92/54; PULSE 79; RESP 16; TEMP 97.1; O2SAT 96
[2024-04-24 10:29] LABS: ALANINE AMINOTRANSFERASE 55 U/L (12-78); ALBUMIN 3.5 G/DL (3.4-5.0); ALBUMIN/GLOBULIN RATIO 1.1 (1.1-1.5); ALKALINE PHOSPHATASE 94 IU/L (46-116); ANION GAP 8 (8-16); ASPARTATE AMINO TRANSFERASE 24 U/L (10-37); BILIRUBIN,TOTAL 0.9 MG/DL (0.1-1.0); BLOOD UREA NITROGEN 27 MG/DL (7-18); BUN/CREATININE RATIO 29.3 (10.0-20.0); CALCIUM 8.8 MG/DL (8.5-10.1); CHLORIDE 99 MMOL/L (99-107); CREATININE 0.92 MG/DL (0.60-1.10); GLUCOSE 143 MG/DL (70-104); POTASSIUM 4.2 MMOL/L (3.5-5.1); SODIUM 133 MMOL/L (135-145); TOTAL CARBON DIOXIDE 26.3 MMOL/L (24-32); TOTAL PROTEIN 6.8 G/DL (6.4-8.2); eCRCL 61 ML/MIN; eGFR 79 ML/MIN
[2024-04-24 10:33] LABS: BASOPHILS # (AUTO) 0.1 X10'3 (0-0.2); BASOPHILS % (AUTO) 0.7 % (0-1); EOSINOPHILS # (AUTO) 0.2 X10'3 (0-0.9); EOSINOPHILS % (AUTO) 2.6 % (0-6); HEMATOCRIT 36.5 % (42.0-52.0); LYMPHOCYTES # (AUTO) 1.8 X10'3 (1.1-4.8); LYMPHOCYTES % (AUTO) 20.8 % (21-51); MEAN CORPUSCULAR HEMOGLOBIN 33.9 PG (27.0-31.0); MEAN CORPUSCULAR HGB CONC 35.6 g/dL (33.0-36.5); MEAN CORPUSCULAR VOLUME 95.2 FL (78-98); MEAN PLATELET VOLUME 7.9 FL (7.4-10.4); MONOCYTES # (AUTO) 0.8 X10'3 (0-0.9); MONOCYTES % (AUTO) 9.9 % (2-12); NEUTROPHILS # (AUTO) 5.6 X10'3 (1.8-7.7); PLATELET COUNT 146 X10'3 (140-440); RED BLOOD COUNT 3.84 X10'6 (4.70-6.10); RED CELL DISTRIBUTION WIDTH 13.8 % (11.5-14.5); WHITE BLOOD COUNT 8.6 X10'3 (4.5-11.0)
[2024-04-24] MEDS: normal saline 1000ml 1,000 ML IV SCH (17:55)
[2024-04-24 18:00] VITALS: BP 87/56; PULSE 99; RESP 16; TEMP 97; O2SAT 98
[2024-04-24 20:00] VITALS: RESP 18; O2SAT 96
[2024-04-24 22:00] VITALS: BP_SYST 112; BP_SYST 128; BP_DIAS 78; BP_DIAS 84; PULSE 100; PULSE 99; RESP 16; TEMP 98.6; O2SAT 99
[2024-04-25] VITALS (9 sets, daily range): BP systolic 69–166; BP diastolic 47–108; PULSE 76–103; RESP 16–18; TEMP 97.5–98.8; O2SAT 96–99
[2024-04-25 05:45] LABS: BASOPHILS # (AUTO) 0.1 X10'3 (0-0.2); BASOPHILS % (AUTO) 0.7 % (0-1); EOSINOPHILS # (AUTO) 0.2 X10'3 (0-0.9); EOSINOPHILS % (AUTO) 1.5 % (0-6); HEMATOCRIT 34.3 % (42.0-52.0); HEMOGLOBIN 12.3 g/dl (14.0-17.9); LYMPHOCYTES % (AUTO) 17.9 % (21-51); MEAN CORPUSCULAR HEMOGLOBIN 33.8 PG (27.0-31.0); MEAN CORPUSCULAR HGB CONC 35.8 g/dL (33.0-36.5); MEAN CORPUSCULAR VOLUME 94.6 FL (78-98); MEAN PLATELET VOLUME 8.2 FL (7.4-10.4); MONOCYTES # (AUTO) 1.1 X10'3 (0-0.9); MONOCYTES % (AUTO) 10.2 % (2-12); NEUTROPHILS # (AUTO) 7.7 X10'3 (1.8-7.7); NEUTROPHILS % (AUTO) 69.7 % (42-75); PLATELET COUNT 139 X10'3 (140-440); RED BLOOD COUNT 3.63 X10'6 (4.70-6.10); RED CELL DISTRIBUTION WIDTH 13.8 % (11.5-14.5)
[2024-04-25 06:04] LABS: ALANINE AMINOTRANSFERASE 49 U/L (12-78); ALBUMIN 3.4 G/DL (3.4-5.0); ALBUMIN/GLOBULIN RATIO 1.1 (1.1-1.5); ALKALINE PHOSPHATASE 88 IU/L (46-116); ANION GAP 8 (8-16); ASPARTATE AMINO TRANSFERASE 25 U/L (10-37); BILIRUBIN,TOTAL 0.8 MG/DL (0.1-1.0); BLOOD UREA NITROGEN 33 MG/DL (7-18); BUN/CREATININE RATIO 35.9 (10.0-20.0); CALCIUM 8.5 MG/DL (8.5-10.1); CHLORIDE 99 MMOL/L (99-107); CREATININE 0.92 MG/DL (0.60-1.10); GLUCOSE 109 MG/DL (70-104); POTASSIUM 4.2 MMOL/L (3.5-5.1); SODIUM 133 MMOL/L (135-145); TOTAL CARBON DIOXIDE 26.5 MMOL/L (24-32); TOTAL PROTEIN 6.6 G/DL (6.4-8.2); eCRCL 61 ML/MIN; eGFR 79 ML/MIN
[2024-04-26 06:00] VITALS: BP 103/64; PULSE 103; RESP 16; TEMP 98.5; O2SAT 99
[2024-04-26 08:00] VITALS: BP 104/60; PULSE 76; RESP 16; O2SAT 96
[2024-04-26] MEDS ORDERED: hydrALAZINE 20mg/ml inj. IV PRN (09:30)
[2024-04-26 18:00] VITALS: BP 152/93; PULSE 89; RESP 16; TEMP 98; O2SAT 99
[2024-04-26] MEDS: FLUoxetine 20mg capsule PO SCH (19:28)
[2024-04-26 22:00] VITALS: BP 140/83; PULSE 100; RESP 18; TEMP 98.1; O2SAT 98
[2024-04-27 06:00] VITALS: BP 127/76; PULSE 93; RESP 16; TEMP 98.7; O2SAT 98
[2024-04-27 08:00] VITALS: RESP 16; O2SAT 98
[2024-04-27 10:00] VITALS: BP_SYST 92; BP_SYST 93; BP_DIAS 52; BP_DIAS 56; PULSE 89; PULSE 94; RESP 20; TEMP 97.3; O2SAT 98
== END 2024-04-27 16:30 | disposition home health service (06) | DRG 552 ==
LOC: ER 08:16 → ED HOLD 13:26 → SUR 3N 18:35
PROVIDERS: ADMIT Family Medicine; ATTEND Family Medicine
PROC: 3E0234Z Introduction of Serum, Toxoid and Vaccine into Muscle, Percutaneous Approach (ICD-10-PCS; principal; 2024-04-25)
DX: M54.16 Radiculopathy, lumbar region (principal); R45.851 Suicidal ideations; I16.0 Hypertensive urgency; I10 Essential (primary) hypertension; E03.9 Hypothyroidism, unspecified; N40.0 Benign prostatic hyperplasia without lower urinary tract symptoms; E11.65 Type 2 diabetes mellitus with hyperglycemia; D63.8 Anemia in other chronic diseases classified elsewhere; E78.1 Pure hyperglyceridemia; I95.1 Orthostatic hypotension; F32.A Depression, unspecified; Z88.8 Allergy status to other drugs, medicaments and biological substances; Z79.4 Long term (current) use of insulin; Z85.89 Personal history of malignant neoplasm of other organs and systems; Z23 Encounter for immunization
CPT/HCPCS: 36415; 72100; 72131; 80053; 80061; 82272; 82948; 83036; 83540; 83550; 83605; 83735; 84145; 84443; 85025; 87081; 90732; 93005; 93306; 96374; 96375; 96376; 97110; 97116; 97161; 97530; 97535; 99285; A4615; A9575; G0378; J0360; J1100; J1650; J1815; J2270; J2405; J7030; J8597